=== PATIENT | male | born 1970 | race Caucasian/White ===

== ENCOUNTER → 2024-05-08 14:01 | Outpatient (BNVA) | payer OTHER, SELFPAY | PROVIDERS: PCP Nurse Practitioner Family; Referring Provider Nurse Practitioner Family; Visit Provider Specialist | DX: G43.711 Chronic migraine without aura, intractable, with status migrainosus (principal); R03.0 Elevated blood-pressure reading, without diagnosis of hypertension; F07.81 Postconcussional syndrome; R55 Syncope and collapse | CPT/HCPCS: 99204 ==

== ENCOUNTER → 2024-05-29 09:01 | Outpatient (BNVA) | payer OTHER, SELFPAY | PROVIDERS: PCP Nurse Practitioner Family; Visit Provider Nurse Practitioner Family | DX: M54.12 Radiculopathy, cervical region (principal); M54.2 Cervicalgia; G43.711 Chronic migraine without aura, intractable, with status migrainosus | CPT/HCPCS: 99214 ==

== ENCOUNTER → 2024-06-05 09:34 | Outpatient (BNVA) | payer OTHER, SELFPAY | PROVIDERS: PCP Nurse Practitioner Family; Visit Provider Nurse Practitioner Family | DX: M79.18 Myalgia, other site (principal); M54.2 Cervicalgia; M54.12 Radiculopathy, cervical region; G43.711 Chronic migraine without aura, intractable, with status migrainosus | CPT/HCPCS: 20553; 99214; J1010; J3490 ==

== ENCOUNTER 2024-06-27 12:52 | Outpatient (RCR) | payer OTHER, SELFPAY | END 2024-07-12 23:59 | disposition home or self-care (01) | LOC: SPT 12:52 | PROVIDERS: PCP Nurse Practitioner Family; Visit Provider Nurse Practitioner Family | DX: M54.2 Cervicalgia (principal); M54.12 Radiculopathy, cervical region; G43.711 Chronic migraine without aura, intractable, with status migrainosus; F17.200 Nicotine dependence, unspecified, uncomplicated | CPT/HCPCS: 97163; 99213 ==

== ENCOUNTER 2024-07-13 05:00 | Outpatient (RCR) | payer OTHER, SELFPAY | END 2024-08-12 23:59 | disposition home or self-care (01) | LOC: SPT 05:00 | PROVIDERS: PCP Nurse Practitioner Family; Visit Provider Nurse Practitioner Family | DX: M54.2 Cervicalgia (principal); M54.12 Radiculopathy, cervical region; G43.711 Chronic migraine without aura, intractable, with status migrainosus; F17.200 Nicotine dependence, unspecified, uncomplicated | CPT/HCPCS: 95885; 95911 ==

== ENCOUNTER → 2024-08-01 13:16 | Outpatient (BNVA) | payer OTHER, SELFPAY | PROVIDERS: PCP Nurse Practitioner Family; Visit Provider Orthopaedic Surgery | DX: M54.9 Dorsalgia, unspecified (principal); M54.12 Radiculopathy, cervical region | CPT/HCPCS: 72050; 72072; 99204 ==

== ENCOUNTER → 2024-12-29 11:04 | Outpatient (BNVA) | payer OTHER, SELFPAY | PROVIDERS: PCP Nurse Practitioner Family; Visit Provider Orthopaedic Surgery | DX: M25.511 Pain in right shoulder (principal); M89.8X1 Other specified disorders of bone, shoulder; G89.29 Other chronic pain | CPT/HCPCS: 73030; 99204 ==